=== PATIENT | female | born 1990 | race Caucasian/White ===

== ENCOUNTER 2019-03-05 01:24 | Emergency (ER) | payer OTHER ==
[2019-03-05] MEDS ORDERED: LIDOCAINE 1%/EPI (MDV) 50 ML INJ INJ (02:00)
[2019-03-05] MEDS: DAKINS 0.0125%(1/40) 473 ML SOLUTION TP (02:00)
[2019-03-05] MEDS: SOD CHLORIDE 0.9% 1,000 ML IV (02:06)
[2019-03-05 02:12] LABS: ADD MAN DIFF? NO
[2019-03-05 02:14] LABS: BASOPHIL # 0.1 10^3/ul (0.0-0.1); BASOPHILS % 0.8 % (0.0-2.0); EOSINOPHILS # 0.2 10^3/ul (0.0-0.5); EOSINOPHILS % 2.5 % (0.0-7.0); HEMATOCRIT 33.7 % (37.0-47.0); HEMOGLOBIN 10.9 g/dl (12.0-16.0); LYMPHOCYTES # 3.6 10^3/ul (0.8-2.9); LYMPHOCYTES % 55.7 % (15.0-51.0); MEAN CORPUSCULAR HEMOGLOBIN 28.3 pg (29.0-33.0); MEAN CORPUSCULAR HGB CONC 32.3 g/dl (32.0-37.0); MEAN CORPUSCULAR VOLUME 87.5 fl (82.0-101.0); MEAN PLATELET VOLUME 9.4 fl (7.4-10.4); MONOCYTE # 0.6 10^3/ul (0.3-0.9); MONOCYTES % 8.9 % (0.0-11.0); NEUTROPHIL # 2.1 10^3/ul (1.6-7.5); NEUTROPHILS % 31.9 % (39.0-77.0); PLATELET COUNT 279 10^3/UL (140-415); RED BLOOD COUNT 3.85 10^6/ul (4.20-5.40); RED CELL DISTRIBUTION WIDTH 13.2 % (11.5-14.5)
[2019-03-05 02:14] LABS: WHITE BLOOD COUNT 6.4 10^3/ul (4.8-10.8)
[2019-03-05] MEDS: morphine 10 MG INJ IV (02:43)
[2019-03-05] MEDS: DIPHENHYDRAMINE 50 MG INJ IV (02:44)
[2019-03-05] MEDS: METHYLPREDNISOLONE 125 MG INJ IV (02:45)
[2019-03-05] MEDS: DIPHTH/TET/ACEL PERTUSS (ADULT) 0.5 ML VIAL IM* (02:46)
[2019-03-05] MEDS: LIDOCAINE 1%/EPI (1:100,000) (MDV) 20 ML INJ (02:57)
[2019-03-05] MEDS: CEFTRIAXONE 1 GM/50 ML (PMX) 50 ML IVPB (04:07)
[2019-03-05] MEDS: BACITRACIN 0.9 GM OINT TOP ×2 (04:49→04:50)
== END 2019-03-05 05:15 | disposition home or self-care (01) ==
LOC: FTE 01:24
DX: S51.812A Laceration without foreign body of left forearm, initial encounter (principal); F17.210 Nicotine dependence, cigarettes, uncomplicated; W26.0XXA Contact with knife, initial encounter; Y92.9 Unspecified place or not applicable; Z23 Encounter for immunization
CPT/HCPCS: 12035; 36415; 73090; 85025; 90471; 90715; 96374; 96375; 99284-25

== ENCOUNTER 2019-03-07 11:25 | Emergency (ER) | payer OTHER | END 2019-03-07 13:36 | disposition home or self-care (01) | LOC: FTE 11:25 | DX: Z48.01 Encounter for change or removal of surgical wound dressing (principal); Z87.891 Personal history of nicotine dependence | CPT/HCPCS: 99283; Z7502 ==

== ENCOUNTER 2019-03-15 14:12 | Emergency (ER) | payer OTHER | END 2019-03-15 16:12 | disposition home or self-care (01) | LOC: E/R 14:12 | DX: Z48.02 Encounter for removal of sutures (principal) | CPT/HCPCS: 99281 ==

== ENCOUNTER 2019-05-14 10:26 | Emergency (ER) | payer OTHER ==
[2019-05-14 11:06] LABS: URINE PH (Dip) POC 6.5 (5.0-8.5)
[2019-05-14 11:06] LABS: URINE BLOOD (Dip) POC Trace-intact (NEGATIVE); URINE GLUCOSE (Dip) POC Negative (NEGATIVE); URINE KETONES (Dip) POC Negative (NEGATIVE); URINE LEUKOCYTE EST (Dip) POC Negative (NEGATIVE); URINE NITRITE (Dip) POC Negative (NEGATIVE); URINE TOTAL PROTEIN POC Negative (NEGATIVE)
[2019-05-14] MEDS: ACETAMINOPHEN 650MG/20.3ML CUP PO (11:09)
[2019-05-14 12:09] LABS: MONOTEST Negative (NEG)
== END 2019-05-14 12:35 | disposition home or self-care (01) ==
LOC: FTE 10:26
DX: J02.0 Streptococcal pharyngitis (principal); F17.210 Nicotine dependence, cigarettes, uncomplicated
CPT/HCPCS: 36415; 81003; 81025; 86308; 87070; 87880; 99283